=== PATIENT | female | born 1955 | race Two or more races ===

== ENCOUNTER 2024-10-03 13:06 | Emergency (ER) | payer OTHER, MEDICAID, SELFPAY ==
[2024-10-03 13:14] VITALS: PULSE 64; O2SAT 97; BMI 43.4
[2024-10-03 13:26] VITALS: BP 133/83; PULSE 52; RESP 18; TEMP 36.7; O2SAT 96
[2024-10-03] MEDS: FAMOTIDINE 20 MG TABLET PO (13:43)
--- NOTE | 2024-10-03 13:53 | EDNOTE_ITS ---
<Statement entered by Zoie Ricketts MD - 10/18/24 06:34> As co-signing physician, I was present and available for consult prn. I concur with the plan and care as documented by the midlevel provider. ED Allergic Reaction RME/HPI General Stated complaint: ALERIGIC, BEE STING ABOVE L) WRIST Time Seen by Provider: 10/03/24 13:28 Source: patient Arrival date/time: 10/03/24 13:06 69-year-old female with no known medical history presents to the emergency room with a chief complaint of being stung by a bee in the left wrist. Patient states she is allergic to bees Mode of arrival: ambulatory Limitations: no limitations Related Data Home Medications ?Medication ?Instructions ?Recorded ?Confirmed simvastatin 10 mg tablet (Zocor) 10 mg PO HS #0 tabs 0 04/25/13 Previous Rx's ?Medication ?Instructions ?Recorded albuterol sulfate 90 mcg/actuation 2 puff inhalation Q 4H PRN wheezing 04/22/17 aerosol inhaler / cough / shortness of breat h #6.7 grams benzonatate 100 mg capsule 100 mg PO Q8HR PRN cough #3 0 caps 04/22/17 (Tessalon Perles) dextromethorphan-guaifenesin 5 10 ml PO Q12H PRN cough #120 mL 04/22/17 mg-100 mg/5 mL oral liquid (Robitussin Cough-Chest Congestion DM) inhalational spacing device #1 ea 04/22/17 (Aerochamber MV spacer) loratadine-pseudoephedrine ER 10 1 tab PO Q24H #10 tab s 04/22/17 mg-240 mg tablet,extended [id number] (Claritin-D 24 Hour) prednisone 20 mg tablet 40 mg (2 x 20 mg) PO QAM #9 tabs 04/22/17 benzonatate 200 mg capsule 200 mg PO TID PRN cough #30 caps 03/07/18 cyclobenzaprine 10 mg tablet 10 mg PO TID PRN muscle s pasm #30 10/01/19 tabs ibuprofen 800 mg tablet 800 mg PO TID PRN pain #30 t abs 10/01/19 diphenhydramine HCl 25 mg capsule 25 mg PO TID PRN all ergic reaction 10/03/24 #14 caps Allergies Allergy/AdvReac Type Severity Reaction Status Date / Time BEE STING Allergy Intermediate SWELLING Uncoded 10/03/24 13:13 Review of Systems Review of Systems Systems Reviewed: All systems reviewed, normal except as documented Constitutional Constitutional: Reports system reviewed and no additional complaints, except as documented, Denies fatigue, Denies fever(s), Denies headache(s) and Denies weakness Eyes Eyes: Reports system reviewed and no additional complaints, except as documented, Denies blurry vision and Denies change in vision ENT Ears, Nose, Mouth, and Throat: Reports system reviewed and no additional complaints, except as documented, Denies otalgia, Denies headache(s), Denies nasal congestion, Denies throat swelling and Denies vertigo Cardiovascular Cardiovascular: Reports system reviewed and no additional complaints, except as documented, Denies chest pain, Denies dyspnea and Denies dyspnea on exertion Respiratory Respiratory: Reports system reviewed and no additional complaints, except as documented, Denies chest congestion, Denies cough, Denies dyspnea, Denies dyspnea on exertion and Denies wheezing Gastrointestinal Gastrointestinal: Reports system reviewed and no additional complaints, except as documented, Denies abdominal pain, Denies cramping, Denies nausea and Denies vomiting Genitourinary Genitourinary: Reports system reviewed and no additional complaints, except as documented Musculoskeletal Musculoskeletal: Reports system reviewed and no additional complaints, except as documented and Denies back pain Integumentary/Breasts Skin/Breast: Reports system reviewed and no additional complaints, except as documented and Denies wounds Neurologic Neurologic: Reports system reviewed and no additional complaints, except as documented, Denies confusion, Denies headache(s), Denies lack of coordination, Denies vertigo and Denies weakness Psychiatric Psychiatric: Reports system reviewed and no additional complaints, except as documented, Denies anxiety, Denies confusion, Denies depression, Denies paranoia, Denies suicidal ideation and Denies tactile hallucinations Endocrine Endocrine: Reports system reviewed and no additional complaints, except as documented and Denies fatigue Hematologic/Lymphatic Hematologic/Lymphatic: Reports system reviewed and no additional complaints, except as documented and Denies lymphadenopathy Allergic/Immunologic Allergic/Immunologic: Reports system reviewed and no additional complaints, except as documented, Denies throat swelling, Denies urticaria and Denies wheezing Past Medical History Past Medical History CARDIAC: Negative Congestive Heart Failure RESPIRATORY: Negative Chronic Obstructive Pulmonary Disease (COPD) GENITOURINARY: Negative Renal Disease ENDOCRINE: Negative Diabetes Mellitus Type 1 or Diabetes Mellitus Type 2 Social History SMOKING STATUS: Former smoker ED Exam General Limitations: Present no limitations General appearance: Present alert and in no apparent distress Head Head exam: Present atraumatic Eye Eye exam: Present normal appearance, PERRL and EOMI ENT ENT exam: Present normal exam, normal oropharynx and mucous membranes moist Neck Neck exam: Present normal inspection, full ROM and trachea midline Chest Chest inspection: Present normal inspection and symmetric chest wall rise Respiratory Respiratory exam: Present normal lung sounds bilaterally Cardiovascular Cardiovascular exam: Present regular rate, normal rhythm and normal heart sounds Abdominal Exam Abdominal exam: Present soft and normal bowel sounds Extremities Exam Extremities exam: Present normal inspection and full ROM Back Exam Back exam: Present normal inspection and full ROM Neurological Exam Neurological exam: Present alert, oriented X3 and CN II-XII intact Psychiatric Psychiatric exam: Present normal affect and normal mood Skin Skin exam: Present warm, dry, intact and normal color Expanded Skin Exam Type of lesion: Present rash Distribution: Present LUE Description: Present tenderness, erythematous and swelling Body image: 2 1. Swelling erythema to the left forearm Course Quality Measures none Orders Category Date Time Status DiphenhydrAMINE [Benadryl] Med 10/03/24 13:28 Discontinued 25 mg PO X1 ONE Famotidine [Pepcid] Med 10/03/24 13:28 Discontinued 20 mg PO X1 ONE dexAMETHasone TAB [Decadron Tab] Med 10/03/24 13:28 Discontinued 10 mg PO X1 ONE Vital Signs Vital signs: Vital Signs Temperature 98.1 F 10/03/24 13:26 Pulse Rate 52 L 10/03/24 13:26 Respiratory Rate 18 10/03/24 13:26 Blood Pressure 133/83 H 10/03/24 13:26 Pulse Oximetry (%) 96 10/03/24 13:26 Oxygen Delivery Method Room Air 10/03/24 13:26 Allergic Reaction MDM Narrative MDM Narrative:: 69-year-old female with no known medical history presents to the emergency room with a chief complaint of being stung by a bee in the left wrist. Patient states she is allergic to bees Patient is hemodynamically stable and in no apparent distress Lung sounds are clear bilaterally there is no wheezing stridor or any abnormal breath sounds. The patient denies any tongue swelling lip swelling or any difficulty breathing Physical examination shows a 1 cm area of erythema and mild swelling to the left wrist where the bee stung her. The area was circled. The patient was given antihistamines and reevaluated in 1 hour with significant improvement. The area has not spread. Patient was discharged and educated to follow-up with primary care provider in the next 24 to 48 hours and return to the emergency room for any evidence of worsening signs or symptoms Patient data External records reviewed:: [facility] previous records Clinical information provided by:: patient Social determinants that could affect healthcare access:: none Patient has the following chronic illnesses:: No chronic illness How is presenting disease/condition affected by chronic disease/condition?: no chronic disease Evaluation data The following diagnostics were reviewed and interpreted by me:: lab results and radiology exam(s) Lab and/or radiology exams considered but not ordered:: Labs and radiology exams considered in order Interpretation Summary: N/A Medications / Prescriptions Medications or Prescriptions considered but not ordered:: Medication given Medication administrations:: Medication Administration History Discontinued Medications Dexamethasone (Dexamethasone 4 Mg Tablet) 10 mg PO X1 ONE Stop: 10/03/24 13:29 Last Admin: 10/03/24 13:42 Dose: 10 mg Documented By: EF Diphenhydramine HCl (Diphenhydramine Elix 25 Mg/10 Ml Udc) 25 mg PO X1 ONE Stop: 10/03/24 13:29 Last Admin: 10/03/24 13:59 Dose: Not Given Documented By: EF Non-Admin Reason: Cancelled by Provider Famotidine (Famotidine 20 Mg Tablet) 20 mg PO X1 ONE Stop: 10/03/24 13:29 Last Admin: 10/03/24 13:43 Dose: 20 mg Documented By: EF Medication given Consultations Consultation(s) initiated? (list below): No Diagnosis Differential Diagnosis allergic reaction: anaphylaxis, allergic reaction, angioedema and contact dermatitis Most likely diagnosis given after review of the tests above:: Allergic reaction Admission Indicated Admission indicated?: not indicated Admission Request Was there a request for admission?: No Disposition Plan Disposition Plan: Discharge Discharge Attestation Discharge Attestation: The patient and all family members were given an opportunity to ask questions and understood the discharge instructions. Discharge instructions specifically effects, indications for sooner follow up or return to the emergency department, and the expected course of current diagnosis. Patient condition: Stable Discharge Plan Plan Patient Disposition: HOME (Self Care) Discharge Disposition comment: Stable Prescriptions/Referrals Prescriptions/Med Rec: New diphenhydramine HCl 25 mg capsule 25 mg PO TID PRN (Reason: allergic reaction) Qty: 14 0RF No Action benzonatate 200 mg capsule 200 mg PO TID PRN (Reason: cough) Qty: 30 0RF loratadine-pseudoephedrine [Claritin-D 24 Hour] 10-240 mg tablet extended release 24 hr 1 tab PO Q24H Qty: 10 0RF dextromethorphan-guaifenesin [Robitussin Cough-Chest Nish DM] 5-100 mg/5 mL liquid 10 ml PO Q12H PRN (Reason: cough) Qty: 120 0RF albuterol sulfate 90 mcg/actuation HFA aerosol inhaler 2 puff INH Q4H PRN (Reason: wheezing / cough / shortness of breath) Qty: 6.7 0RF Rx Instructions: 1-2 puffs Q4-6 hours prn. administer with spacer (DME) inhalational spacing device [Aerochamber MV] spacer See Dose Instructions .ROUTE .MEDSUPPLY Qty: 1 0RF Dose Instruction: As directed Rx Instructions: As directed prednisone 20 mg tablet 40 mg PO QAM Qty: 9 0RF Rx Instructions: Take 40mg (2 tabs) PO QAM x 3 days, then 20mg (1 tab) PO QAM x 3 days benzonatate [Tessalon Perles] 100 mg capsule 100 mg PO Q8HR PRN (Reason: cough) Qty: 30 0RF Rx Instructions: 1-2 cap(s) PO Q8 hours prn cough simvastatin [Zocor] 10 MG tablet 10 mg PO HS Qty: 0 cyclobenzaprine 10 mg tablet 10 mg PO TID PRN (Reason: muscle spasm) Qty: 30 0RF ibuprofen 800 mg tablet 800 mg PO TID PRN (Reason: pain) Qty: 30 0RF Referrals: Yin Diaz PA-C ([facility]) [Primary Care Provider] - In 1 week Problem List Clinical Impression: Allergic reaction to drug Patient/Caregiver Discharge Instructions Additional Instructions: Please follow-up with your primary care provider in the next 24 to 48 hours Medication was sent to your pharmacy to help you with your allergic reaction For any evidence of worsening signs or symptoms return to the emergency room immediately Print Language: Romanian Stand Alone Forms: [facility] Info., Patient Portal Info Letter PA/PRODUCTION MACHINE COMPUTER OPERATOR Supervising Physician PA/PRODUCTION MACHINE COMPUTER OPERATOR Supervising Physician: Dr. RICKETTS
== END 2024-10-03 15:13 | disposition home or self-care (01) ==
PROVIDERS: Emergency Provider Emergency Medicine; PCP Nurse Practitioner Family
DX: T63.441A Toxic effect of venom of bees, accidental (unintentional), initial encounter (principal); R22.32 Localized swelling, mass and lump, left upper limb
CPT/HCPCS: 99283; J8540; A9270